=== PATIENT | female | born 1955 | race Caucasian/White ===

== ENCOUNTER 2017-08-29 16:06 | Inpatient (IN) | payer BC ==
[~2017-08-29] VITALS: Ht 165.1 cm; Wt 66.2 kg
[~2017-08-29 16:06] MED LIST: AMBIEN 10MG10 MG PO; CALCITRIOL; FLEXERIL 1010 MG/TAB PO; LEXAPRO20 MG PO; LORTAB 7.5/5001 TAB PO; MOTRIN 800800 MG/TAB PO; NORCO 325 MG-51 TAB PO; SYNTHROID PO; THYROID; TRAZODO50 MG PO
[2017-08-29 16:39] LABS: BASO # 0.2 (0.0-0.2); BASO % 1.6 % (0.0-2.0); EOS # 0.1 (0.0-0.7); EOS % 0.7 % (0-4.0); GRAN # 7.2 (1.4-6.5); GRAN % 72.5 % (42.2-75.2); HEMATOCRIT 43.4 % (37.0-47.0); HEMOGLOBIN 14.3 g/dl (12.5-16.0); LYMPH # 1.9 (1.2-3.4); LYMPH % 18.6 % (20.0-51.0); MEAN CELL VOLUME 95 fl (80.0-100.0); MEAN CORPUSCULAR HEMOGLOBIN 31 pg (27.0-31.0); MEAN CORPUSCULAR HGB CONC 33 g/dl (33.0-37.0); MONO # 0.6 (0.1-0.6); MONO % 6.3 % (1.7-9.3); PLATELET COUNT 190 K/mm3 (130-400); RED BLOOD COUNT 4.58 M/mm3 (4.10-5.30); WHITE BLOOD COUNT 9.9 K/mm3 (4.8-10.8)
[2017-08-29 16:57] LABS: ADJUSTED CALCIUM 7.9 mg/dL (8.4-10.2); ALBUMIN 5.2 gm/dL (3.5-5.0); BILIRUBIN,TOTAL 0.8 mg/dL (0.0-1.0); CALCIUM 8.9 mg/dL (8.4-10.2); CREATININE, serum 0.68 mg/dL (0.52-1.25); POTASSIUM 3.7 mmol/L (3.4-5.0)
[2017-08-29] MEDS ORDERED: VITAMIN D 50,1.25 MG PO (18:53)
[2017-08-29 19:34] VITALS: BP 152/73; PULSE 55; TEMP 97.3
[2017-08-30] VITALS (525 sets, daily range): BP systolic 78–157; BP diastolic 48–90; PULSE 56–94; TEMP 96.1–98.4; O2SAT 94–100
[2017-08-30 01:35] LABS: COLLECTION METHOD CLEAN CATCH
[2017-08-30 01:46] LABS: MUCOUS Present /lpf; PH 5 (5-8); SQUAMOUS EPITHELIAL 0-2 /hpf; URINE APPEARANCE Clear; URINE BACTERIA Rare /hpf; URINE BILIRUBIN Negative (NEGATIVE); URINE BLOOD Negative (NEGATIVE); URINE COLOR Yellow; URINE GLUCOSE 1+ (NEGATIVE); URINE KETONE Trace (NEGATIVE); URINE LEUKOCYTE ESTERASE Negative (NEGATIVE); URINE PROTEIN(semi-quant) 1+ (NEGATIVE); URINE RBC 0-2 /hpf; URINE UROBILINOGEN Negative (NEGATIVE)
[2017-08-30 07:35] LABS: BASO % 0.2 % (0.0-2.0); GRAN # 14.6 (1.4-6.5); GRAN % 90.7 % (42.2-75.2); LYMPH # 0.5 (1.2-3.4); LYMPH % 3.2 % (20.0-51.0); MEAN CELL VOLUME 96 fl (80.0-100.0); MEAN CORPUSCULAR HGB CONC 33 g/dl (33.0-37.0); MEAN PLATELET VOLUME 11.8 fl (7.4-10.4); MONO # 0.9 (0.1-0.6); MONO % 5.5 % (1.7-9.3); PLATELET COUNT 249 K/mm3 (130-400); RED BLOOD COUNT 5.78 M/mm3 (4.10-5.30); WHITE BLOOD COUNT 16.1 K/mm3 (4.8-10.8)
[2017-08-30 07:47] LABS: ADJUSTED CALCIUM 7.5 mg/dL (8.4-10.2); ALBUMIN 4.3 gm/dL (3.5-5.0); BILIRUBIN,TOTAL 0.6 mg/dL (0.0-1.0); CALCIUM 7.7 mg/dL (8.4-10.2); CREATININE, serum 0.84 mg/dL (0.52-1.25); POTASSIUM 4.7 mmol/L (3.4-5.0); TOTAL PROTEIN 7.5 gm/dL (6.4-8.2)
[2017-08-30 07:52] LABS: HEMATOCRIT 55.4 % (37.0-47.0); MEAN CORPUSCULAR HEMOGLOBIN 31 pg (27.0-31.0)
[2017-08-30 07:54] LABS: ADD PATHOLOGY DIFF REVIEW NO
[2017-08-30 09:56] LABS: BAND 6 % (0-10); LYMPHOCYTE 5 % (20.0-51.0); NEUTROPHILS 84 % (42.0-75.2); PLATELET ESTIMATE NORMAL (NORMAL); TOTAL CELLS COUNTED 100
[2017-08-31] VITALS (267 sets, daily range): BP systolic 97–138; BP diastolic 52–73; PULSE 76–101; TEMP 97.8–99.1; O2SAT 95–100
[2017-08-31 05:43] LABS: BASO % 0.2 % (0.0-2.0); GRAN # 10.8 (1.4-6.5); GRAN % 86.2 % (42.2-75.2); LYMPH # 0.7 (1.2-3.4); LYMPH % 5.5 % (20.0-51.0); MEAN CELL VOLUME 96 fl (80.0-100.0); MEAN CORPUSCULAR HGB CONC 32 g/dl (33.0-37.0); MEAN PLATELET VOLUME 11.5 fl (7.4-10.4); MONO % 7.8 % (1.7-9.3); RED BLOOD COUNT 3.64 M/mm3 (4.10-5.30); WHITE BLOOD COUNT 12.5 K/mm3 (4.8-10.8)
[2017-08-31 05:44] LABS: HEMATOCRIT 34.9 % (37.0-47.0); HEMOGLOBIN 11.3 g/dl (12.5-16.0); MEAN CORPUSCULAR HEMOGLOBIN 31 pg (27.0-31.0); PLATELET COUNT 132 K/mm3 (130-400)
[2017-08-31 05:52] LABS: CREATININE, serum 0.72 mg/dL (0.52-1.25); POTASSIUM 3.8 mmol/L (3.4-5.0)
[2017-09-01 06:10] VITALS: BP 129/71; PULSE 83; TEMP 98.2
[2017-09-01 07:30] LABS: BASO % 0.3 % (0.0-2.0); EOS % 0.1 % (0-4.0); GRAN # 7.3 (1.4-6.5); GRAN % 82.2 % (42.2-75.2); LYMPH # 0.8 (1.2-3.4); LYMPH % 9.2 % (20.0-51.0); MEAN CELL VOLUME 95 fl (80.0-100.0); MEAN CORPUSCULAR HGB CONC 33 g/dl (33.0-37.0); MEAN PLATELET VOLUME 11.7 fl (7.4-10.4); MONO # 0.7 (0.1-0.6); MONO % 7.9 % (1.7-9.3); PLATELET COUNT 115 K/mm3 (130-400); RED BLOOD COUNT 3.34 M/mm3 (4.10-5.30); WHITE BLOOD COUNT 8.9 K/mm3 (4.8-10.8)
[2017-09-01 07:32] LABS: HEMATOCRIT 31.6 % (37.0-47.0); HEMOGLOBIN 10.4 g/dl (12.5-16.0); MEAN CORPUSCULAR HEMOGLOBIN 31 pg (27.0-31.0)
[2017-09-01 07:36] LABS: CALCIUM 6.3 mg/dL (8.4-10.2); CREATININE, serum 0.57 mg/dL (0.52-1.25)
[2017-09-01 09:25] VITALS: BP 125/70; PULSE 91; TEMP 98.4
[2017-09-01 13:54] VITALS: BP 128/76; PULSE 88; TEMP 98
[2017-09-01 17:29] VITALS: BP 127/79; PULSE 91; TEMP 98.1
[2017-09-01 22:30] VITALS: BP 126/66; PULSE 84; TEMP 98.8
[2017-09-02] VITALS (7 sets, daily range): BP systolic 110–129; BP diastolic 65–76; PULSE 72–87; TEMP 97.9–99.4
[2017-09-02 07:21] LABS: BASO % 0.5 % (0.0-2.0); EOS # 0.1 (0.0-0.7); EOS % 0.6 % (0-4.0); GRAN # 6.9 (1.4-6.5); GRAN % 82.2 % (42.2-75.2); LYMPH # 0.8 (1.2-3.4); MEAN CELL VOLUME 94 fl (80.0-100.0); MEAN CORPUSCULAR HGB CONC 33 g/dl (33.0-37.0); MEAN PLATELET VOLUME 11.3 fl (7.4-10.4); MONO # 0.6 (0.1-0.6); MONO % 7.3 % (1.7-9.3); PLATELET COUNT 125 K/mm3 (130-400); RED BLOOD COUNT 3.45 M/mm3 (4.10-5.30); WHITE BLOOD COUNT 8.4 K/mm3 (4.8-10.8)
[2017-09-02 07:27] LABS: HEMATOCRIT 32.5 % (37.0-47.0); HEMOGLOBIN 10.7 g/dl (12.5-16.0); MEAN CORPUSCULAR HEMOGLOBIN 31 pg (27.0-31.0)
[2017-09-02 07:32] LABS: CALCIUM 6.4 mg/dL (8.4-10.2); CREATININE, serum 0.55 mg/dL (0.52-1.25); POTASSIUM 3.1 mmol/L (3.4-5.0)
[2017-09-03] VITALS (7 sets, daily range): BP systolic 123–142; BP diastolic 68–81; PULSE 74–94; TEMP 98–99.5
[2017-09-03 07:34] LABS: CALCIUM 6.2 mg/dL (8.4-10.2); CREATININE, serum 0.61 mg/dL (0.52-1.25); POTASSIUM 3.1 mmol/L (3.4-5.0)
[2017-09-04] VITALS (7 sets, daily range): BP systolic 110–135; BP diastolic 64–76; PULSE 76–84; TEMP 98–99.6
[2017-09-04 07:15] LABS: CALCIUM 6.7 mg/dL (8.4-10.2); CREATININE, serum 0.59 mg/dL (0.52-1.25); POTASSIUM 3.9 mmol/L (3.4-5.0)
[2017-09-05 05:20] VITALS: BP 129/76; PULSE 81; TEMP 98.5
[2017-09-05 09:21] VITALS: BP 126/66; PULSE 88; TEMP 98.6
[2017-09-05 13:09] VITALS: BP 111/61; PULSE 86; TEMP 98.4
== END 2017-09-05 18:04 | disposition home or self-care (01) | DRG 329 ==
LOC: COL.ER 16:06 → SURG 18:55 → ICU 08-30 14:35 → SURG 08-30 14:35 → IMCU 08-30 14:35 → SURG 08-31 17:15
PROVIDERS: Emergency Medicine; Surgery
PROC: 0WJP4ZZ Inspection of Gastrointestinal Tract, Percutaneous Endoscopic Approach (ICD-10-PCS; 2017-08-30)
PROC: 0DTA0ZZ Resection of Jejunum, Open Approach (ICD-10-PCS; principal; 2017-08-30 11:00)
PROC: 0DTB0ZZ Resection of Ileum, Open Approach (ICD-10-PCS; 2017-08-30 11:00)
PROC: 0DNU0ZZ Release Omentum, Open Approach (ICD-10-PCS; 2017-08-30 11:00)
DX: K56.51 Intestinal adhesions [bands], with partial obstruction (principal); K55.011 Focal (segmental) acute (reversible) ischemia of small intestine; Z85.030 Personal history of malignant carcinoid tumor of large intestine; Z93.3 Colostomy status
CPT/HCPCS: A4315; A9284; C1751; G0378; J1100; J1170; J1644; J1650; J1885; J1956; J2370; J2405; J2704; J3010; J3480; J7030; J7042; J7050; J7120; Q9967

== ENCOUNTER → 2017-10-29 | Outpatient (CLI) | payer BC ==
[~2017-10-29] MED LIST changes: +VITAMIN D 50,1.25 MG PO
== END ==
LOC: MC.RAD 10-09 08:20
DX: Z12.31 Encounter for screening mammogram for malignant neoplasm of breast (principal)

== ENCOUNTER → 2019-01-08 | Outpatient (CLI) | payer BC | LOC: MC.RAD 07:43 | DX: Z12.31 Encounter for screening mammogram for malignant neoplasm of breast (principal) ==

== ENCOUNTER 2019-03-09 17:14 | Inpatient (IN) | payer BC ==
[~2019-03-09] VITALS: Ht 165.1 cm; Wt 69.3 kg
--- NOTE | 2019-03-09 17:30 | NUR ---
Dr Dawson notified of patients arrival.
[2019-03-09 17:50] VITALS: BP 149/84; PULSE 69; TEMP 98.2
[2019-03-09 18:25] LABS: BASO # 0.1 (0.0-0.2); BASO % 0.7 % (0.0-2.0); EOS % 0.3 % (0-4.0); GRAN # 10.1 (1.4-6.5); GRAN % 84.7 % (42.2-75.2); HEMATOCRIT 48.2 % (37.0-47.0); HEMOGLOBIN 16.3 g/dl (12.5-16.0); LYMPH # 0.9 (1.2-3.4); LYMPH % 7.8 % (20.0-51.0); MEAN CELL VOLUME 93 fl (80.0-100.0); MEAN CORPUSCULAR HEMOGLOBIN 32 pg (27.0-31.0); MEAN CORPUSCULAR HGB CONC 34 g/dl (33.0-37.0); MEAN PLATELET VOLUME 10.4 fl (7.4-10.4); MONO # 0.7 (0.1-0.6); MONO % 6.2 % (1.7-9.3); PLATELET COUNT 179 K/mm3 (130-400); RED BLOOD COUNT 5.18 M/mm3 (4.10-5.30); REDCELL DISTRIBUTION WIDTH-CV 13.1 % (11.5-14.5)
[2019-03-09 18:40] LABS: ALBUMIN 4.5 gm/dL (3.5-5.0); BILIRUBIN,TOTAL 0.9 mg/dL (0.0-1.0); CALCIUM 9.3 mg/dL (8.4-10.2); CREATININE, serum 0.7 (0.52-1.25); POTASSIUM 4.2 mmol/L (3.4-5.0)
[2019-03-09 19:34] VITALS: BP 133/70; PULSE 65; TEMP 98.9
--- NOTE | 2019-03-09 20:00 | NUR ---
REPORT RECEVIED. ASSUMED CARE FOR ARMHOLE SEWER. ASSESSMENT COMPLETE. VS STABLE. DR CEVALLOS HERE TO SEE WITH NEW ORDERS INITIATED. C/O PAIN IN LEFT LOWER QUADRANT. DILAUDID GIVEN PER ORDER. WILL MONITOR EFFECTIVENESS. DENIES QUESTIONS OR CONCERNS AT THIS TIME. CALL LIGHT WITHIN REACH. BED IN LOW POSITION. WILL MONITOR.
[2019-03-09 23:37] VITALS: BP 124/72; PULSE 62; TEMP 97.8
[2019-03-10 04:02] VITALS: BP 144/71; PULSE 63; TEMP 97.6
[2019-03-10 06:08] LABS: BASO % 0.7 % (0.0-2.0); EOS # 0.1 (0.0-0.7); EOS % 1.8 % (0-4.0); GRAN # 4.5 (1.4-6.5); GRAN % 73.8 % (42.2-75.2); HEMATOCRIT 40.7 % (37.0-47.0); LYMPH # 0.8 (1.2-3.4); LYMPH % 12.9 % (20.0-51.0); MEAN CELL VOLUME 95 fl (80.0-100.0); MEAN CORPUSCULAR HEMOGLOBIN 32 pg (27.0-31.0); MEAN CORPUSCULAR HGB CONC 33 g/dl (33.0-37.0); MEAN PLATELET VOLUME 10.4 fl (7.4-10.4); MONO # 0.6 (0.1-0.6); MONO % 10.5 % (1.7-9.3); PLATELET COUNT 147 K/mm3 (130-400); RED BLOOD COUNT 4.28 M/mm3 (4.10-5.30); REDCELL DISTRIBUTION WIDTH-CV 13.2 % (11.5-14.5)
[2019-03-10 06:18] LABS: CALCIUM 7.8 mg/dL (8.4-10.2); CREATININE, serum 0.62 (0.52-1.25); POTASSIUM 3.9 mmol/L (3.4-5.0)
[2019-03-10 06:46] LABS: HEMOGLOBIN 13.5 g/dl (12.5-16.0)
--- NOTE | 2019-03-10 07:09 | NUR ---
REPORT TO KEVEN SMITH
[2019-03-10 07:49] VITALS: BP 135/72; PULSE 61; TEMP 98.3
--- NOTE | 2019-03-10 10:14 | NUR ---
Initial visit; Patient thanked survey research center director for looking in on her and states she is [employer]. Loan Coordinator spoke of her [place]ze and wished her well.
--- NOTE | 2019-03-10 10:30 | NUR ---
Patient alert and oriented, answers questions appropriately. See assessment. NGT to LIS. Abdomen soft, non tender, non distended. Bowel sounds hyperactive x4 quads. No air or stool noted in ostomy. No c/o at this time.
[2019-03-10 12:01] VITALS: BP 146/75; PULSE 63; TEMP 98.4
[2019-03-10 15:25] VITALS: BP 150/79; PULSE 66; TEMP 97.6
--- NOTE | 2019-03-10 16:47 | NUR ---
SW met with patient to discuss discharge planning. Patient lives independently at home with her . Patient's PCP is Dr Ames and she obtains prescriptions from [facility] pharmacy. Patient does not use any assistive devices or home health services. Patient does not have a DPOA but SW provided form to review with her . TOM does not anticipate any discharge needs.
[2019-03-10 20:52] VITALS: BP 141/74; PULSE 68; TEMP 99
--- NOTE | 2019-03-10 21:00 | NUR ---
Patient in bed. Reports passing gas through her colostomy to Q. Denies pain. Asking for her Synthroid, she has not taken since Saturday. IVF to left arm without redness or swelling. Taking clear liquids slowly. Is alert and oriented x4.
--- NOTE | 2019-03-10 22:01 | NUR ---
DR ZOIEL ESPINAL DAILY SYNTHROID.
[2019-03-10 23:43] VITALS: BP 122/62; PULSE 65; TEMP 98.7
[2019-03-11 04:19] VITALS: BP 140/80; PULSE 66; TEMP 98.6
--- NOTE | 2019-03-11 06:00 | NUR ---
Patient up ambulating in hallways. IV site to left wrist with IVF infusing without problem. Denies pain.
--- NOTE | 2019-03-11 08:13 | NUR ---
Patient independent in room. going to shower. Only complaint this am is of headache, tylenol given. Patient is tolerating clear tray slowly, repoprts it being a little sweet. She is hopeful for discharge home today, she has alot of work she wants to get caught up on.
[2019-03-11 08:38] VITALS: BP 140/69; PULSE 70; TEMP 98.7
--- NOTE | 2019-03-11 10:15 | NUR ---
Follow-up visit; Patient states she feels better and looks well. Mental Health Assistant offered blessings and mentioned is is good to see Sienna doing so well.
[2019-03-11 11:21] VITALS: BP 152/88; PULSE 59; TEMP 98.3
--- NOTE | 2019-03-11 12:58 | NUR ---
Patient progressed to soft after speaking to . She is going to order dinner. She reports passing alot of flatus, She denies pain or bloating. Ready to eat.
--- NOTE | 2019-03-11 14:14 | NUR ---
Patient tolerating diet, taking it slowly.
[2019-03-11 15:15] VITALS: BP 139/79; PULSE 71; TEMP 98.3
--- NOTE | 2019-03-11 16:00 | NUR ---
Patient ready for discharge. rounded. Discharge paperwork reviewed. She denies questions and concerns. Patient ambulated out with all belongigns, her taking her home
== END 2019-03-11 16:01 | disposition home or self-care (01) | DRG 390 ==
LOC: SURG 17:14
PROVIDERS: ADMIT Surgery
PROC: 0D9 Gastrointestinal System, Drainage (ICD-10-PCS; principal; 2019-03-09)
DX: K56.690 Other partial intestinal obstruction (principal); Z85.038 Personal history of other malignant neoplasm of large intestine; Z88.1 Allergy status to other antibiotic agents; Z88.2 Allergy status to sulfonamides; Z93.3 Colostomy status; F32.9 Major depressive disorder, single episode, unspecified; E89.0 Postprocedural hypothyroidism
CPT/HCPCS: J1170; J7042

== ENCOUNTER → 2019-03-09 | Outpatient (CLI) | payer BC ==
[~2019-03-09] MED LIST changes: -SYNTHROID PO; +SYNTHROID0.137 MG PO
== END ==
LOC: COL.RAD 14:41
DX: K56.609 Unspecified intestinal obstruction, unspecified as to partial versus complete obstruction (principal); Z93.3 Colostomy status; Z85.038 Personal history of other malignant neoplasm of large intestine
CPT/HCPCS: Q9967

== ENCOUNTER → 2020-08-08 | Outpatient (CLI) | payer MEDICARE, BC | LOC: MC.RAD 07-27 11:45 | DX: Z12.31 Encounter for screening mammogram for malignant neoplasm of breast (principal) ==

== ENCOUNTER 2021-03-17 13:06 | Day surgery (SDC) | payer MEDICARE, BC ==
[2007-10-22 23:56] VITALS: BP 123/73
[~2021-03-17] VITALS: Ht 165.1 cm; Wt 76.4 kg
[2021-03-17] MEDS ORDERED: VERAPAMIL 440 MG/TAB PO (13:44)
[2021-03-17] MEDS ORDERED: TUMS500 MG CHEW (13:45)
[2021-03-17] MEDS ORDERED: ZYRTEC 10MG10 MG PO (13:46)
[2021-03-17] MEDS ORDERED: PROTONIX 40MG T40 MG PO (13:58)
[2021-03-17] MEDS ORDERED: CARAFATE 1GM1 G PO (14:14)
[2021-03-17 14:30] VITALS: BP 133/77; PULSE 86; TEMP 98.4
[2021-03-17 15:30] VITALS: BP 130/63; PULSE 73; TEMP 97.7
[2021-03-17 15:45] VITALS: BP 137/56; PULSE 68
[2021-03-17 16:00] VITALS: BP 131/71; PULSE 72
--- NOTE | 2021-03-17 16:12 | NUR ---
PT RETURNED FROM ENDO PROCEDURE ROOM INTO ENDO BAY #6. PT ALERT AND SLEEPY. DENIES NAUSEA OR PAIN AT THIS TIME. IVF FLOWING PATENT WITHOUT DIFFICULTY. LUNGS CLEAR, HRR, BOWEL SOUNDS PRESENT AND ACTIVE. AT BEDSIDE. PT REQUESTS BLUEBERRY MUFFIN AND COFFEE AND CREAMER AND CRANBERRY JUICE. WARM BLANKET PROVIDED FOR COMFORT. CALL LIGHT IN REACH.
--- NOTE | 2021-03-17 16:18 | NUR ---
PT TOLERATING FOOD AND FLUID. CALL LIGHT IN REACH, TALKING WITH PATIENT AT BEDSIDE. DENIES NAUSEA AND PAIN.
[2021-03-17 16:19] VITALS: BP 130/63; PULSE 68
--- NOTE | 2021-03-17 16:25 | NUR ---
PT TOLERATING FOOD AND FLUIDS WITHOUT NAUSEA AND PAIN. DISMISSAL INSTRUCTIONS PROVIDED, DENIES QUESTIONS. DISMISSAL PAPERS SIGNED. IV DC'D TO RIGHT HAND, PT TOLERATED WELL. PT WAS TAKEN TO PATIENT ENTRANCE PER KEVEN CARLSON. PT RETURNING HOME IN FAMILY VEHICLE, , SARA PEDRAZA.
== END 2021-03-17 16:43 | disposition home or self-care (01) ==
LOC: SDCO 13:06
DX: K57.30 Diverticulosis of large intestine without perforation or abscess without bleeding (principal); K25.7 Chronic gastric ulcer without hemorrhage or perforation; K29.80 Duodenitis without bleeding; K44.9 Diaphragmatic hernia without obstruction or gangrene; D50.0 Iron deficiency anemia secondary to blood loss (chronic); K92.1 Melena; Z85.038 Personal history of other malignant neoplasm of large intestine; Z88.1 Allergy status to other antibiotic agents; Z88.2 Allergy status to sulfonamides; G47.33 Obstructive sleep apnea (adult) (pediatric)
CPT/HCPCS: J2704; J7030

== ENCOUNTER → 2022-06-01 | Outpatient (CLI) | payer MEDICARE, BC ==
[~2022-06-01] MED LIST changes: +CARAFATE 1GM1 G PO; +PROTONIX 40MG T40 MG PO; +TUMS500 MG CHEW; +VERAPAMIL 440 MG/TAB PO; +ZYRTEC 10MG10 MG PO
== END ==
LOC: MC.RAD 07:06
DX: Z12.31 Encounter for screening mammogram for malignant neoplasm of breast (principal)

== ENCOUNTER 2023-06-24 13:30 | Outpatient (RCR) | payer MEDICARE, BC | END 2023-07-06 | disposition home or self-care (01) | LOC: WSPT | DX: R26.81 Unsteadiness on feet (principal) ==

== ENCOUNTER 2023-12-07 23:52 | Inpatient (IN) | payer MEDICARE, BC ==
[~2023-12-07] VITALS: Ht 165.1 cm; Wt 79.0 kg
[2023-12-08] VITALS (9 sets, daily range): BP systolic 128–152; BP diastolic 68–77; PULSE 67–82; TEMP 97.7–98.5
[2023-12-08] MEDS ORDERED: NS 1,000 ML IV ONE (00:30)
[2023-12-08 00:47] LABS: BASO # 0.1 K/mm3 (0.0-0.2); EOS # 0.1 K/mm3 (0.0-0.7); EOS % 0.8 % (0.0-4.0); GRAN % 83.4 % (42.2-75.2); HEMOGLOBIN 11.8 g/dl (12.5-16.0); LYMPH # 0.8 K/mm3 (1.2-3.4); LYMPH % 8.1 % (20.0-51.0); MEAN CELL VOLUME 91 fl (80.0-100.0); MEAN CORPUSCULAR HEMOGLOBIN 29 pg (27-31); MEAN CORPUSCULAR HGB CONC 32 g/dl (33.0-37.0); MEAN PLATELET VOLUME 10.4 fl (7.4-10.4); MONO # 0.6 K/mm3 (0.1-0.6); MONO % 6.5 % (1.7-9.3); PLATELET COUNT 208 K/mm3 (130-400); RED BLOOD COUNT 4.06 M/mm3 (4.10-5.30); REDCELL DISTRIBUTION WIDTH-CV 13.9 % (11.5-14.5)
[2023-12-08 01:07] LABS: ALBUMIN 3.9 gm/dL (3.4-4.8); BILIRUBIN,TOTAL 0.4 mg/dL (0.2-1.2); C-REACTIVE PROTEIN 0.19 mg/dL (0.00-0.50); CALCIUM 8.3 mg/dL (8.4-10.2); CREATININE, serum 0.85 mg/dL (0.57-1.11); POTASSIUM 4.2 mmol/L (3.5-4.5)
[2023-12-08 02:05] LABS: COLLECTION METHOD CLEAN CATCH
[2023-12-08 02:11] LABS: PH 8.5 (5.0-8.5); URINE APPEARANCE CLEAR (CLEAR/HAZY); URINE BLOOD NEGATIVE (NEGATIVE); URINE COLOR YELLOW (YELLOW); URINE GLUCOSE NEGATIVE (NEGATIVE); URINE KETONE NEGATIVE (NEGATIVE); URINE NITRATE NEGATIVE (NEGATIVE); URINE PROTEIN(semi-quant) TRACE (NEGATIVE); URINE UROBILINOGEN 0.2 E.U/dL (0.2-1.0)
[2023-12-08] MEDS ORDERED: Iohexol 300 - 100 ML VIAL IV ONE (02:28)
[2023-12-08] MEDS ORDERED: NS 50 ML IV SCH (02:28)
[2023-12-08] MEDS ORDERED: Ondansetron 4 MG/2 ML VIAL IV ONE (04:15)
[2023-12-08] MEDS ORDERED: Morphine 4 MG/ML VIAL IV ONE (04:15)
[2023-12-08] MEDS ORDERED: Morphine 4 MG/ML VIAL IV PRN (04:30)
[2023-12-08] MEDS ORDERED: NS 1,000 ML IV SCH (04:30)
[2023-12-08] MEDS ORDERED: Ondansetron 4 MG/2 ML VIAL IV PRN (04:30)
--- NOTE | 2023-12-08 06:15 | NUR ---
Patient arrived to the floor at 0515 from ED per cart, A/Ox4 with NG tube F16, 49cm length, with IV infusing well on right AC, on room air, reports her pain is not bad at this time, reminded to call if pain increases, admission assessment and intake done, medrec reviewed, voided without any difficulty, with colostomy bag to left lower abdomen with appliance CDI, denies futher needs, call light and personal items within reach, fall precautions in place.
--- NOTE | 2023-12-08 10:41 | NUR ---
SW met with patient to complete intake. Patient provides she lives in [facility] with spouse Efren Eden [phone] who is also appointed as her DPOA/HC. Patient provides she does not utilize DME, is independent with ADL's, and does not utilize HH services at this time. PCP is Dr. Li, and pharmacy is [facility]. Patient states she plans to return to her home upon discharge. SW will continue to follow. Discharge plan: home
[2023-12-08] MEDS ORDERED: Levothyroxine 0.112 MG,Levothyroxine 0.025 MG PO SCH (11:44)
[2023-12-08] MEDS ORDERED: Cetirizine 10 MG TAB PO PRN (11:45)
[2023-12-08] MEDS ORDERED: Acetaminophen 325 MG TAB PO PRN (12:00)
--- NOTE | 2023-12-08 21:38 | NUR ---
Patient assessed at this time, see shift assessment, reports headache tylenol given, applied ice pack to forehead, still with NG tube to LIS draining minimal amount of silverman drainage, NS at 125cc/hr infusing well to right AC, denies nausea, denies further needs, call light and personal items within reach, will continue to monitor.
--- NOTE | 2023-12-08 21:45 | NUR ---
Patient requested to take ambien to help her sleep tonight, called Dr. Fisher and received an order for ambien 5mg HS PRN.
[2023-12-08] MEDS ORDERED: Zolpidem 5 MG TAB PO PRN ×2 (21:46→22:30)
[2023-12-09] VITALS (11 sets, daily range): BP systolic 128–145; BP diastolic 71–81; PULSE 62–78; TEMP 97.7–98.8
--- NOTE | 2023-12-09 00:37 | NUR ---
Patient's NG tube tape about to come off, replaced a new one.
[2023-12-09 05:57] LABS: ALBUMIN 3.3 gm/dL (3.4-4.8); BILIRUBIN,TOTAL 0.4 mg/dL (0.2-1.2); CALCIUM 7.2 mg/dL (8.4-10.2); CREATININE, serum 0.69 mg/dL (0.57-1.11); POTASSIUM 3.5 mmol/L (3.5-4.5)
--- NOTE | 2023-12-09 07:50 | NUR ---
PT CALLED TO NURSE'S STATION. PT REPORTED NG TUBE WAS NOT SUCTIONING. NG TUBE WAS AT 35 CM. ADVANCED TUBE TO 50 CM. REINFORCED TUBE CLAMP WITH TAPE CHEVERON.
[2023-12-09 08:11] LABS: BASO # 0.1 K/mm3 (0.0-0.2); BASO % 0.6 % (0.0-2.0); EOS # 0.1 K/mm3 (0.0-0.7); GRAN # 6.2 K/mm3 (1.4-6.5); GRAN % 79.8 % (42.2-75.2); HEMATOCRIT 31.4 % (37.0-47.0); HEMOGLOBIN 9.9 g/dl (12.5-16.0); LYMPH # 0.9 K/mm3 (1.2-3.4); LYMPH % 11.4 % (20.0-51.0); MEAN CELL VOLUME 91 fl (80.0-100.0); MEAN CORPUSCULAR HEMOGLOBIN 29 pg (27-31); MEAN CORPUSCULAR HGB CONC 32 g/dl (33.0-37.0); MEAN PLATELET VOLUME 11.2 fl (7.4-10.4); MONO # 0.5 K/mm3 (0.1-0.6); MONO % 6.9 % (1.7-9.3); PLATELET COUNT 172 K/mm3 (130-400); RED BLOOD COUNT 3.45 M/mm3 (4.10-5.30); REDCELL DISTRIBUTION WIDTH-CV 13.8 % (11.5-14.5)
--- NOTE | 2023-12-09 09:49 | NUR ---
PT IS A&OX4. VSS. PT IS SITTING UP IN BEDSIDE CHAIR. PT HOLDING HEAD. PT REPORTS HEADACHE WITH ACHING PAIN. RN PROVIDED FRESH ICE PACK AND COOL, DAMP WASHCLOTH PER PT REQUEST TO AID WITH PAIN MGMT. NORMAL HEART SOUNDS AND CLEAR LUNG SOUNDS BILATERALLY. BOWEL SOUNDS ARE ABSENT. PT REPORTS FEELING BLOATED BUT PASSING FLATUS. ABD IS DISTENDED, NON TENDER, AND SOFT. COLOSTOMY BAG IN PLACE IN LLQ. COLOSTOMY SITE IS CLEAN, DRY, AND NO REDDNESS/IRRITATION. BAG IS EMPTY. PULSES ARE PALPABLE IN ALL 4 EXTREMITIES. NG TUBE IS AT 50 CM AND SECURED TO NOSE WITH CLAMP AND TAPE. NG TUBE SET TO LIS WITH BROWN FLUID IN CANISTER. IV SITE IN R AC HAS NO ISSUES/REDDNESS/IRRITATION. NSS RUNNING AT 125 ML/HR. PT HAS CALL LEACH AND NON-SLIP SOCKS ON.
--- NOTE | 2023-12-09 11:18 | NUR ---
Director Of Epidemiology met with patient not knowing she had already been seen by SW yesterday. Patient confirmed she lives in [place] with her , Efren and sees Dr. Sosa for primary care at [facility]. Patient drives herself to appointments and reported no difficulty getting her medications. Patient stated Efren is her DPOA-HC and that he has a copy at home. Discharge Plan: Home
--- NOTE | 2023-12-09 13:50 | NUR ---
HOURLY ROUNDING. PT REPORTED "PACING MYSELF" WITH HER FOOD TRAY. PT HAD ABOUT 60% CONSUMED (RECEIVED TRAY AROUND 1245). PT REPORTED SHE IS STILL WORKING ON HER TRAY. PT REPORTS NO NAUSEA OR PAIN. PT HAS CALL LIGHT WITHIN REACH.
--- NOTE | 2023-12-09 19:15 | NUR ---
report received from emilia ocampo. pt resting in recliner watching tv. pt denies pain. pt ng remains clamped. call light in reach. all needs met at this time.
--- NOTE | 2023-12-09 22:22 | NUR ---
shift assessment complete, see documentation. pt now resting in bed. NG remains clamped without bloating, nausea, or abd distention. pt tolerated hs meds well. pt continues with clears without issue. call light in reach. all needs met at this time.
[2023-12-10] VITALS (7 sets, daily range): BP systolic 129–144; BP diastolic 75–83; PULSE 68–77; TEMP 97.6–98.3
--- NOTE | 2023-12-10 00:51 | NUR ---
pt reporting increased pain. prn tylenol administered per orders. call light in reach. all needs met at this time.
--- NOTE | 2023-12-10 07:45 | NUR ---
Per shift report, PT did well over night on Clear Diet and had a couple small BMs. Discussed with Dr Fisher about advancing diet and pulling NG tube, as discussed the previous day. Dr Fisher approved to discontinue NG tube and advance diet to Minced and Moist.
--- NOTE | 2023-12-10 08:00 | NUR ---
PT is A&Ox4. VSS. PT is sititng up in bed. PT denies pain, n/v, headache, bloating. Heart sounds are normal. Lungs are clear. ABD is rounded and soft with audible bowel sounds. Colostomy in LLQ is clean, no reddness/irritation, and bag is in place. Pulses are palpable in all 4 extremities. PT able to move extremities. Discussed advancement of diet and discontinuing NG tube with PT. Pulled NG tube from L nare. PT tolerated well. Discussed Minced/Moist diet with PT. PT stated she will order her breakfast tray.
[2023-12-10] MEDS ORDERED: Ergocalciferol 1.25 MG (50,000 UNITS) CAPSULE PO SCH (09:00)
--- NOTE | 2023-12-10 10:06 | NUR ---
Initial visit; Sienna is a very pleasant, friendly woman who thanked [employer] for looking in on her. She is doing better, she says and is enjoying the "[facility]" in our hospital. Sienna states that she is Buddist and offers Blessings to [employer] which are returned with a thank you for choosing our hospital.
--- NOTE | 2023-12-10 14:32 | NUR ---
Received D/C orders from Dr Fisher. Discontinued Pt's IV and covered site with gauze and coban wrap. Discussed contents of Discharge Packet with Pt - meds, SBO info, Soft Diet info, need for follow up appointment. Pt was accepting and verbalized understanding. Pt walked out to car with PCT Flor.
== END 2023-12-10 14:38 | disposition home or self-care (01) | DRG 390 ==
LOC: COL.ER 23:52 → SURG 12-08 04:26
PROVIDERS: Nurse Practitioner; ADMIT Surgery
DX: K56.600 Partial intestinal obstruction, unspecified as to cause (principal); K21.9 Gastro-esophageal reflux disease without esophagitis; E03.9 Hypothyroidism, unspecified; E78.5 Hyperlipidemia, unspecified; G44.009 Cluster headache syndrome, unspecified, not intractable; Z90.89 Acquired absence of other organs; Z88.2 Allergy status to sulfonamides; Z88.8 Allergy status to other drugs, medicaments and biological substances; Z87.891 Personal history of nicotine dependence; Z85.048 Personal history of other malignant neoplasm of rectum, rectosigmoid junction, and anus; Z79.890 Hormone replacement therapy; Z79.899 Other long term (current) drug therapy; Z23 Encounter for immunization
CPT/HCPCS: J2270; J2405; J7030; Q9967

== ENCOUNTER → 2024-07-14 | Outpatient (CLI) | payer MEDICARE, BC | LOC: MC.RAD 07:49 | DX: Z12.31 Encounter for screening mammogram for malignant neoplasm of breast (principal) ==